=== PATIENT | male | born 1995 | race Caucasian/White ===

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

== ENCOUNTER 2018-01-11 18:12 | Emergency (ER) | payer OTHER ==
[~2018-01-11] VITALS: Ht 175.3 cm; Wt 81.8 kg
[2018-01-11 18:34] VITALS: BP 116/81
--- NOTE | 2018-01-11 18:55 | NUR ---
PT AMBULATED TO ER BED 04
--- NOTE | 2018-01-11 19:30 | NUR ---
PT AAOX4 FOLLOWING COMMANDS, CHIEF COMPLAINT OF NAUSEA VOMITING, PT STATES HE VOMITED BLOOD RECENTLY. PT STATES HE WAS SEEN IN URGENT CARE AND TOLD TO COME TO ED. ACTIVE BOWEL SOUNDS, ABD TENDERNESS TO TOUCH. EMESIS BAG @ BEDSIDE. PT DENIES PAIN @ THIS TIME. NO ACUTE DISTRESS NOTED. WILL CONTINUE TO OBSERVE.
[2018-01-11] MEDS ORDERED: KETOROLAC 30 MG/ML VIAL IVP ONE (21:15)
[2018-01-11] MEDS ORDERED: PANTOPRAZOLE 40 MG INJ VIAL IVP ONE (21:15)
[2018-01-11] MEDS ORDERED: NACL 0.9% 1,000 ML IV ONE (21:15)
[2018-01-11] MEDS ORDERED: ONDANSETRON 4 MG/2 ML VIAL IVP ONE (21:15)
[2018-01-11 21:34] LABS: BASOPHILS % (AUTO) 0.3 % (0.0-2.0); EOSINOPHILS # (AUTO) 0.1 K/uL (0-0.4); EOSINOPHILS % (AUTO) 0.4 % (0.0-4.0); HEMATOCRIT 46.9 % (36-52); HEMOGLOBIN 15.7 g/dL (12.0-18.0); LYMPHOCYTES # (AUTO) 2.1 K/uL (2.0-11.5); LYMPHOCYTES % (AUTO) 17.3 % (20.5-51.1); MEAN CORPUSCULAR HEMOGLOBIN 30 pg (27-31); MEAN CORPUSCULAR HGB CONC 33 g/dL (33-37); MEAN CORPUSCULAR VOLUME 88.2 fL (80-94); MONOCYTES # (AUTO) 0.7 K/uL (0.8-1.0); MONOCYTES % (AUTO) 5.3 % (1.7-9.3); NEUTROPHILS # (AUTO) 9.4 K/uL (1.8-7.7); NEUTROPHILS % (AUTO) 76.7 % (42.2-75.2); PLATELET COUNT (AUTO) 269 K/uL (140-450); RED BLOOD CELL COUNT(AUTO) 5.32 MIL/uL (4.20-6.10); RED CELL DISTRIBUTION WIDTH 12.7 % (11.6-13.7); WHITE BLOOD COUNT (AUTO) 12.3 K/uL (4.5-11.0)
[2018-01-11 21:43] LABS: ANION GAP 8.3 (8-16); CARBON DIOXIDE 30.5 mmol/L (21-32); POTASSIUM 3.8 mmol/L (3.5-5.1)
[2018-01-11 21:47] LABS: PROTHROMBIN TIME 11.3 secs (10.8-13.4)
[2018-01-11 21:49] LABS: ALBUMIN 4.3 g/dL (3.4-5.0); TOTAL BILIRUBIN 0.5 mg/dL (0.0-1.0)
--- NOTE | 2018-01-11 22:11 | NUR ---
radiology @ bedside for xray
--- NOTE | 2018-01-11 22:29 | NUR ---
Patient discharged with v/s stable. Written and verbal after care instructions given and explained. Patient verbalized understanding. Ambulatory with steady gait. All questions addressed prior to discharge. Advised to follow up with PMD. No acute distress @ this time.
== END 2018-01-11 22:29 | disposition home or self-care (01) ==
LOC: MED 18:12
DX: K22.6 Gastro-esophageal laceration-hemorrhage syndrome (principal)
CPT/HCPCS: 36415; 74018; 80053; 81002; 85025; 85610; 85730; 96361; 96374; 96375; 99285; C9113; J1885; J2405; J7030; Q0092